=== PATIENT | female | born 1980 | race Caucasian/White ===

== ENCOUNTER 2017-01-23 14:22 | Outpatient (CLI) ==
[2015-02-18 08:12] VITALS: BMI 38.3
--- NOTE | 2017-01-23 14:58 | CT ---
EXAM: CT of the abdomen pelvis without contrast History: Abdominal pain. Comparison: None available. Technique: Multiplanar CT images through the abdomen pelvis were obtained without the administratio n of IV contrast Findings: Lung bases are free of consolidation. No acute osseous abnormalities. Enlarged fatty liver with areas of focal fatty sparing. Cholecystectomy clips. Calcified granulomas within the spleen. Adrenal glands are unremarkable. No peripancreatic inflammation. No renal sto nakul and no hydronephrosis. The appendix is normal. Colonic diverticulosis. Inflammation surroundi ng a short segment of sigmoid colon. No bladder wall thickening. No free air. No abscess. The ut erus is within normal limits. No perirectal inflammation. Impression: 1. Acute uncomplicated sigmoid diverticulitis. 2. Enlarged fatty liver.
== END 2017-01-23 14:23 | disposition home or self-care (01) ==
LOC: RAD 14:22
PROVIDERS: ATTEND Nurse Practitioner Family
DX: R10.9 Unspecified abdominal pain (principal); R30.9 Painful micturition, unspecified; Z87.442 Personal history of urinary calculi
CPT/HCPCS: 74176

== ENCOUNTER 2017-01-24 07:08 | Outpatient (CLI) ==
[2015-02-18 08:12] VITALS: BMI 38.3
[2017-01-24 07:30] LABS: BASOPHILS % (AUTO) 0.4 % (0.0-3.0); EOSINOPHILS # (AUTO) 0.3 K/ul (0.0-0.7); EOSINOPHILS % (AUTO) 2.4 % (0.0-7.0); HEMOGLOBIN 14.5 g/dl (12.0-16.0); IMMATURE GRANULOCYTE % (AUTO) 0.4 % (0.0-5.0); LYMPHOCYTES # (AUTO) 3.1 K/uL (0.60-3.4); LYMPHOCYTES % (AUTO) 30.2 (10.0-50.0); MEAN CORPUSCULAR HEMOGLOBIN 29.2 pg (27.0-31.0); MEAN CORPUSCULAR HGB CONC 34.5 (31.8-35.4); MEAN CORPUSCULAR VOLUME 84.5 fl (81.0-99.0); MONOCYTES # (AUTO) 0.7 K/uL (0.4-2.0); MONOCYTES % (AUTO) 6.8 (0-10); NEUTROPHILS # (AUTO) 6.2 K/ul (2.0-6.9); NEUTROPHILS % (AUTO) 59.8; PLATELET COUNT 238 10^3/uL (140-440); RED BLOOD COUNT 4.97 10^6/ul (4.20-5.40); WHITE BLOOD COUNT 10.37 K/ul (4.6-10.2)
[2017-01-24 07:49] LABS: ALBUMIN 3.6 g/dL (3.4-5.0); ALBUMIN/GLOBULIN RATIO 0.95; ANION GAP 11.9; BILIRUBIN,TOTAL 0.43 mg/dL (0.00-1.20); BUN/CREATININE RATIO 15.27; CALCIUM 9.6 mg/dL (8.2-10.2); CREATININE 0.72 mg/dL (0.60-1.30); POTASSIUM 3.9 mmol/L (3.5-5.10); TOTAL PROTEIN 7.4 g/dL (6.4-8.2)
== END 2017-01-24 07:09 | disposition home or self-care (01) ==
LOC: LAB 07:08
PROVIDERS: ATTEND Nurse Practitioner Family
DX: K57.92 Diverticulitis of intestine, part unspecified, without perforation or abscess without bleeding (principal)
CPT/HCPCS: 36415; 80053; 82150; 83690; 85025

== ENCOUNTER 2019-02-02 11:35 | Outpatient (CLI) ==
[2015-02-18 08:12] VITALS: BMI 38.3
--- NOTE | 2019-02-04 11:07 | MAMMO ---
EXAM: Bilateral digital screening mammogram (2-D and 3-D) History: Baseline screening Findings: MLO and CC views of bilateral breasts demonstrate scattered fibroglandular breast parenchy ma. CAD was reviewed by the radiologist. Tomosynthesis was performed. 0.6 cm round mass within the left breast at 3 o'clock middle depth. A cluster of nodular densities within the upper-outer quadra nt of the right breast and cluster of nodular densities within the lower inner quadrant of the right breast. No suspicious microcalcifications. Impression: Indeterminate bilateral breast nodules. Recommend further evaluation with bilateral ramon ast ultrasound. BIRADS 0, incomplete. Recommend further evaluation.
== END 2019-02-02 11:36 | disposition home or self-care (01) ==
LOC: RAD 11:35
PROVIDERS: ATTEND Advanced Practice Midwife
DX: Z12.31 Encounter for screening mammogram for malignant neoplasm of breast (principal)